=== PATIENT | male | born 1955 | race Caucasian/White ===

== ENCOUNTER 2017-05-07 11:05 | Inpatient (IN) | payer BC, OTHER ==
[~2017-05-07] VITALS: Ht 177.8 cm; Wt 95.2 kg
[~2017-05-07 11:05] MED LIST: MELO15TA3 PO
[2017-05-07] MEDS ORDERED: SODIUM CHLORIDE 0.9% 1000ML 2,000 ML IV STA (11:44)
[2017-05-07] MEDS ORDERED: ONDANSETRON INJ 2 MG/ML 2 ML VIAL IV STA (11:44)
[2017-05-07] MEDS ORDERED: FENTANYL CITRATE INJ 50 MCG/1 ML 2 ML VIAL IV ONE (11:45)
--- NOTE | 2017-05-07 11:56 | EMERGENCY ROOM VISIT NOTE ---
History Report prepared by Brandin: Peng Nguyen Under the Supervision of: Dr. Vivien Guillory M.D. First contact with patient: 11:36 Chief Complaint: DEHYDRATION Stated Complaint: DEHYDRATION, FLU, NO EATING/DRINKING X 24 HRS, V Nursing Triage Summary: PT REPORTS n/v , fever, headache since sunday has been using advil. History of Present Illness The patient is a 61 year old male who presents to the Emergency Room with complaints of a persistent headache and vomiting that began on Sunday at 1500 , 44 hours prior to arrival. He rates the headache pain as a 4/10 in severity. The patient states that he was cutting the grass Sunday afternoon when his symptoms onset. His also notes that he has felt feverish since this time as well. He has been taking Tylenol for his headache, but has not taken any in the past six hours. The patent is still currently experiencing the headache at this time. Source of History: patient, spouse/significant other Onset: 44 hours [employer] Position: head Symptom Intensity: 4/10 Quality: other (Headache) Associated Symptoms: + fevers, + vomiting Review of Systems See HPI for pertinent positives & negatives. A total of 10 systems reviewed and were otherwise negative. Past Medical & Surgical Medical Problems: (1) BPH (benign prostatic hyperplasia) (2) DVT (deep venous thrombosis) (3) DVT (deep venous thrombosis) (4) Factor V Leiden (5) Gout (6) Pulmonary embolism Surgical Problems: (1) History of knee replacement (2) History of tonsillectomy and adenoidectomy (3) S/P ACL repair (4) Status post total knee replacement, left (5) Status post total knee replacement, right Family History Diabetes mellitus Gallbladder disease Lung disease Social History Smoking Status: Never Smoker Drug Use: none Marital Status: Housing Status: lives with significant other Occupation Status: employed Current/Historical Medications Scheduled PRN Allopurinol (Zyloprim), 1 TAB PO DAILY PRN for gout Indomethacin (Indocin), 1 CAP PO TID PRN for Pain Allergies Coded Allergies: Sulfa Drugs (Verified Allergy, Mild, 10/29/09) Physical Exam Vital Signs Date Time Temp Pulse Resp B/P (MAP) Pulse Ox O2 Delivery O2 Flow Rate FiO2 05/07/17 14:28 81 17 146/85 97 05/07/17 12:57 72 20 155/82 96 Room Air 05/07/17 11:39 76 05/07/17 11:34 95 Room Air 05/07/17 11:31 78 18 150/84 96 Room Air 05/07/17 11:06 37.5 85 20 139/88 92 Room Air Pain Rating (0-10): 4.0 Physical Exam Vital signs reviewed. General: Well-appearing male, in no significant distress. HEENT: No scleral icterus, PERRLA, neck supple. Atraumatic. Cardiovascular: Regular rate and rhythm, no extra sounds. Pulmonary: Clear to auscultation bilaterally, normal work of breathing. Abdomen: Soft, nontender, nondistended, positive bowel sounds. Musculoskeletal: Atraumatic, no peripheral edema. Mild discomfort with forward flexion. Neurologic: Patient awake alert and oriented x 3, full strength in all 4 extremities. Cranial nerves 2 through 12 grossly intact. Skin: Warm, dry, no rash Medical Decision & Procedures ER Provider Diagnostic Interpretation: Radiology results as stated below per my review and radiologist interpretation: HEAD WITHOUT CONTRAST (CT) CT DOSE: 691.05 mGy.cm HISTORY: Headache mental status change TECHNIQUE: Multiaxial CT images of the head were performed without the use of intravenous contrast. A dose lowering technique was utilized adhering to the principles of ALARA. Comparison: None. Findings: The paranasal sinuses and mastoid air cells are clear. The calvarium and skull base are intact. The ventricles and sulci are within normal limits. There is no mass, hematoma, midline shift, or acute infarct. Impression: No acute intracranial abnormality. The above report was generated using voice recognition software. It may contain grammatical, syntax or spelling errors. Electronically signed by: Oz Knott M.D. 05/07/2017 12:11 PM Dictated Date/Time: 05/07/2017 12:10 PM Laboratory Results 05/07/17 11:20 Red Blood Count 5.16, Mean Corpuscular Volume 92.2, Mean Corpuscular Hemoglobin 31.6, Mean Corpuscular Hemoglobin Concent 34.2, Mean Platelet Volume 10.2, Neutrophils (%) (Auto) 82.0, Lymphocytes (%) (Auto) 10.7, Monocytes (%) (Auto) 6.6, Eosinophils (%) (Auto) 0.0, Basophils (%) (Auto) 0.2, Neutrophils # (Auto) 9.44, Lymphocytes # (Auto) 1.23, Monocytes # (Auto) 0.76, Eosinophils # (Auto) 0.00, Basophils # (Auto) 0.02 05/07/17 11:20 Test 05/07/17 11:20 05/07/17 11:34 05/07/17 11:40 05/07/17 13:45 White Blood Count 11.51 K/uL (4.8-10.8) Red Blood Count 5.16 M/uL (4.7-6.1) Hemoglobin 16.3 g/dL (14.0-18.0) Hematocrit 47.6 % (42-52) Mean Corpuscular Volume 92.2 fL (80-100) Mean Corpuscular Hemoglobin 31.6 pg (25-34) Mean Corpuscular Hemoglobin Concent 34.2 g/dl (32-36) Platelet Count 244 K/uL (130-400) Mean Platelet Volume 10.2 fL (7.4-10.4) Neutrophils (%) (Auto) 82.0 % Lymphocytes (%) (Auto) 10.7 % Monocytes (%) (Auto) 6.6 % Eosinophils (%) (Auto) 0.0 % Basophils (%) (Auto) 0.2 % Neutrophils # (Auto) 9.44 K/uL (1.4-6.5) Lymphocytes # (Auto) 1.23 K/uL (1.2-3.4) Monocytes # (Auto) 0.76 K/uL (0.11-0.59) Eosinophils # (Auto) 0.00 K/uL (0-0.5) Basophils # (Auto) 0.02 K/uL (0-0.2) RDW Standard Deviation 42.8 fL (36.4-46.3) RDW Coefficient of Variation 12.6 % (11.5-14.5) Immature Granulocyte % (Auto) 0.5 % Immature Granulocyte # (Auto) 0.06 K/uL (0.00-0.02) Anion Gap 6.0 mmol/L (3-11) Est Creatinine Clear Calc Drug Dose 80.2 ml/min Estimated GFR () 83.5 Estimated GFR (Non- 72.1 BUN/Creatinine Ratio 11.9 (10-20) Calcium Level 9.2 mg/dl (8.5-10.1) Magnesium Level 2.2 mg/dl (1.8-2.4) Total Bilirubin 0.8 mg/dl (0.2-1) Direct Bilirubin 0.2 mg/dl (0-0.2) Aspartate Amino Transf (AST/SGOT) 20 U/L (15-37) Alanine Aminotransferase (ALT/SGPT) 45 U/L (12-78) Alkaline Phosphatase 73 U/L (45-117) Total Protein 7.8 gm/dl (6.4-8.2) Albumin 3.9 gm/dl (3.4-5.0) Lyme Disease IgG Antibody NEG (NEG) Lyme Disease IgM Antibody NEG (NEG) Bedside Lactic Acid Venous 2.04 mmol/L (0.90-1.70) Urine Color YELLOW Urine Appearance TURBID (CLEAR) Urine pH 5.5 (4.5-7.5) Urine Specific [place] 1.027 (1.000-1.030) Urine Protein NEG (NEG) Urine Glucose (UA) NEG (NEG) Urine Ketones NEG (NEG) Urine Occult Blood NEG (NEG) Urine Nitrite NEG (NEG) Urine Bilirubin NEG (NEG) Urine Urobilinogen NEG (NEG) Urine Leukocyte Esterase NEG (NEG) Urine WBC (Auto) 0 /hpf (0-5) Urine RBC (Auto) 0-4 /hpf (0-4) Urine Hyaline Casts (Auto) 1-5 /lpf (0-5) Urine Epithelial Cells (Auto) 0-5 /lpf (0-5) Urine Bacteria (Auto) NEG (NEG) CSF Color COLORLESS CSF Appearance CLEAR CSF WBC 260 /uL (0-5) CSF RBC 4 /uL (0) CSF Polynuclear WBCs 5.0 % CSF Mononuclear WBCs 95.0 % CSF Xanthrochromic NO XANTHOCHROMIA CSF Cell Count Tube # 4 CSF Chemistry Tube # 2 CSF Glucose 48 mg/dl (40-70) CSF Total Protein 118.8 mg/dl (15.0-45.0) Laboratory results per my review. Medications Administered Medications (Trade) Dose Ordered Sig/Hero Route Start Time Stop Time Status Last Admin Dose Admin Sodium Chloride 2,000 ml @ 999 mls/hr Q2H1M STAT IV 05/07/17 11:44 05/07/17 13:44 DC 05/07/17 12:13 999 MLS/HR Ondansetron HCl (Zofran Inj) 4 mg NOW STAT IV 05/07/17 11:44 05/07/17 11:47 DC 05/07/17 12:12 4 MG Fentanyl Citrate (Fentanyl Inj) 50 mcg NOW ONCE IV 05/07/17 11:45 05/07/17 11:47 DC 05/07/17 12:13 50 MCG Lidocaine HCl (Xylocaine 1% Inj (Local)) 20 ml STK-MED ONCE .ROUTE 05/07/17 13:39 05/07/17 13:40 DC 05/07/17 13:39 20 ML Diphenhydramine HCl (Benadryl Inj) 25 mg NOW STAT IV 05/07/17 14:10 05/07/17 14:13 DC 05/07/17 14:25 25 MG Prochlorperazine Edisylate (Compazine Inj) 10 mg NOW STAT IV 05/07/17 14:10 05/07/17 14:13 DC 05/07/17 14:25 10 MG Ketorolac Tromethamine (Toradol Inj) 30 mg NOW STAT IV 05/07/17 14:10 05/07/17 14:13 DC 05/07/17 14:25 30 MG Sodium Chloride 1,000 ml @ 125 mls/hr Q8H STAT IV 05/07/17 14:10 05/07/17 22:09 05/07/17 14:27 125 MLS/HR Ceftriaxone Sodium (Rocephin Inj) 2 gm NOW STAT IV 05/07/17 14:49 05/07/17 14:54 DC 05/07/17 15:30 2 GM Dexamethasone Sodium Phosphate (Decadron Inj) 10 mg NOW ONCE IV 05/07/17 15:00 05/07/17 15:01 DC 05/07/17 15:30 10 MG Vancomycin HCl 2300 mg/Sodium Chloride 546 ml @ 200 mls/hr ONE STAT IV 05/07/17 14:49 05/07/17 17:32 05/07/17 15:30 200 MLS/HR ECG Indication: vomiting Rate (beats per minute): 74 Rhythm: normal sinus Findings: no acute ischemic change, no ectopy, other (T-wave flattening inferior) ED Course 1143: Past medical records reviewed. The patient was evaluated in room C4. A complete history and physical examination was performed. 2244: Ordered Zofran 4 mg IV, Sodium Chloride 2000 mL @ 999 mL/hr IV, Fentanyl 50 mcg IV. 1339: Ordered Lidocaine HCl 20 mL 1410: Ordered Sodium Chloride 1000 mL @ 125 mL/hr IV, Toradol 30 mg IV, Compazine 10 mg IV, Benadryl 25 mg IV. 1449: Ordered Vancomycin 546 mL @ 200 mL/hr IV, Rocephin 2 gm IV. 1453: I discussed the case with Lainey Conn PA-C at this time. She will evaluate the patient for further treatment. 1500: Ordered Decadron 10 mg IV. Medical Decision Differential diagnosis: Etiologies such as migraine headache, meningitis, sinusitis, CO exposure, ICH, SAH, infection, tumor, headache, sinus thrombosis, arterial dissection, as well as others were entertained. This patient was evaluated and appeared to be in no significant distress. IV access was obtained and laboratory work was obtained. Patient was placed on the air sampling and monitoring. He was hydrated with normal saline solution, given IV fentanyl and Zofran for his discomfort. CT scan of the head was obtained and is negative for acute intracranial abnormality. Patient's laboratory work is fairly unrevealing with a mildly elevated WBC. Patient was given IV Compazine, IV Benadryl, IV Toradol for continued headache. A lumbar puncture was performed and results are concerning for a WBC greater than 200. Protein is also elevated at 118. Glucose in the CSF is normal. These will be sent for culture. The patient was given IV dexamethasone, IV vancomycin and IV ceftriaxone. Pharmacy consult was placed and they also recommended IV ampicillin due to the patient's risk of listeria. This was dosed by pharmacy. The patient was discussed with the hospitalist service will evaluate the patient for admission and further management. Patient are aware of the plan and agree. Medication Reconcilliation Current Medication List: was personally reviewed by or Blood Pressure Screening Patient's blood pressure: Elevated blood pressure Blood pressure disposition: Elevated BP felt to be situational Consults Time Called: 1449 Consulting Physician: Lainey Conn PA-C Returned Call: [phone] I discussed the case with Lainey Conn PA-C at this time. She will evaluate the patient for further treatment. Impression Primary Impression: Meningitis Critical Care I have personally spent greater than 30 minutes of critical care time in the direct management of this patient. This includes bedside care, interpretation of diagnostic studies, and testing, discussion with consultants, patient, and family members, and other required patient management activities. This 30 minutes is in excess of all separately billable procedures. Scribe Attestation The scribe's documentation has been prepared under my direction and personally reviewed by me in its entirety. I confirm that the note above accurately reflects all work, treatment, procedures, and medical decision making performed by me. Departure Information Dispostion Being Evaluated By Hospitalist Oz Sampson M.D. (PCP) Patient Instructions [facility]
--- NOTE | 2017-05-07 12:13 | DIAGNOSTIC IMAGING REPORT ---
HEAD WITHOUT CONTRAST (CT) CT DOSE: 691.05 mGy.cm HISTORY: Headache mental status change TECHNIQUE: Multiaxial CT images of the head were performed without the use of intravenous contrast. A dose lowering technique was utilized adhering to the principles of ALARA. Comparison: None. Findings: The paranasal sinuses and mastoid air cells are clear. The calvarium and skull base are intact. The ventricles and sulci are within normal limits. There is no mass, hematoma, midline shift, or acute infarct. Impression: No acute intracranial abnormality. The above report was generated using voice recognition software. It may contain grammatical, syntax or spelling errors. Electronically signed by: Oz Knott M.D. 05/07/2017 12:11 PM Dictated Date/Time: 05/07/2017 12:10 PM
[2017-05-07 12:16] LABS: URINE APPEARANCE TURBID (CLEAR); URINE BILIRUBIN NEG (NEG); URINE COLOR YELLOW; URINE EPITHELIAL CELL AUTO 0-5 /lpf (0-5); URINE NITRITE NEG (NEG); URINE PH 5.5 (4.5-7.5); URINE SPECIFIC GRAVITY 1.027 (1.000-1.030); UROBILINOGEN NEG (NEG); ZZUR CULT IF INDIC CLEAN CATCH NO
[2017-05-07 12:19] LABS: MANUAL MICROSCOPIC REQUIRED? NO; REVIEW REQ? NO
[2017-05-07 12:25] LABS: BASO % 0.2 %; BASO ABS # 0.02 K/uL (0-0.2); COMPLETE YES; HEMATOCRIT 47.6 % (42-52); IG% 0.5 %; LYMPH % 10.7 %; LYMPH ABS # 1.23 K/uL (1.2-3.4); MEAN CELL VOLUME 92.2 fL (80-100); MEAN CORPUSCULAR HEMOGLOBIN 31.6 pg (25-34); MEAN CORPUSCULAR HGB CONC 34.2 g/dl (32-36); MEAN PLATELET VOLUME 10.2 fL (7.4-10.4); MONO % 6.6 %; PLATELET COUNT 244 K/uL (130-400); RED BLOOD COUNT 5.16 M/uL (4.7-6.1); WHITE BLOOD COUNT 11.51 K/uL (4.8-10.8)
[2017-05-07 12:33] LABS: BUN/CREATININE RATIO 11.9 (10-20); CALCIUM 9.2 mg/dl (8.5-10.1); CREATININE 1.1 mg/dl (0.60-1.40); MAGNESIUM 2.2 mg/dl (1.8-2.4); POTASSIUM 4.2 mmol/L (3.5-5.1)
[2017-05-07] MEDS ORDERED: INDO-22 PO (13:03)
[2017-05-07] MEDS ORDERED: LIDOCAINE HCL 1% 20 ML VIAL ONE (13:39)
[2017-05-07] MEDS ORDERED: SODIUM CHLORIDE 0.9% 1000ML 1,000 ML IV STA (14:10)
[2017-05-07] MEDS ORDERED: PROCHLORPERAZINE 5 MG/ML 2 ML VIAL IV STA (14:10)
[2017-05-07] MEDS ORDERED: KETOROLAC TROMETHAMINE 30 MG/ML VIAL IV STA (14:10)
[2017-05-07] MEDS ORDERED: DiphenhydrAMINE HCL 50 MG/ML VIAL IV STA (14:10)
[2017-05-07 14:19] LABS: CSF TOTAL PROTEIN 118.8 mg/dl (15.0-45.0)
[2017-05-07 14:25] LABS: CSF CHEMISTRY TUBE # 2
[2017-05-07 14:30] LABS: CSF APPEARANCE CLEAR; CSF COLOR COLORLESS; CSF XANTHOCHROMIC NO XANTHOCHROMIA
[2017-05-07] MEDS ORDERED: VANCOMYCIN INJ 2,300 MG in SODIUM CHLORIDE 0.9% 500ML 500 ML IV STA (14:49)
[2017-05-07] MEDS ORDERED: CEFTRIAXONE SOD INJ 1 GM ADDVIAL IV STA (14:49)
[2017-05-07] MEDS ORDERED: DEXAMETHASONE SOD INJ 10 MG/ML VIAL IV ONE (15:00)
[2017-05-07] MEDS ORDERED: AMPICILLIN IV 2,000 MG in SODIUM CHLOR 0.9% AD-VAN 100ML 100 ML IV STA (15:06)
[2017-05-07 15:09] LABS: LYME DISEASE AB IGG NEG (NEG); LYME DISEASE AB IGM NEG (NEG)
[2017-05-07] MEDS ORDERED: ALLO100T PO (15:24)
[2017-05-07] MEDS ORDERED: VANCOMYCIN CONSULT ACTIVE PRN (15:28)
[2017-05-07] MEDS ORDERED: ONDANSETRON INJ 2 MG/ML 2 ML VIAL IV PRN (15:30)
[2017-05-07] MEDS: SODIUM CHLORIDE 0.9% 1000ML 1,000 ML IV SCH (15:48)
[2017-05-07] MEDS ORDERED: ACYCLOVIR CONSULT ACTIVE PRN (15:51)
[2017-05-07] MEDS ORDERED: AMPICILLIN CONSULT PHARMACY PRN (15:51)
--- NOTE | 2017-05-07 16:10 | Pharmacy Progress Note ---
Pharmacy Abx Initial Consult Date of Service May 07, 2017. Pharmacy Dosing Scope Date of Consult: 05/07/17 Consultation requested by: Lainey Conn Pharmacy is consulted to initiate vancomycin/ampicillin/acyclovir IV dosing therapy, order appropriate labs and adjust drug dose/frequency. Subjective The patient is a 61 year old male admitted on 05/07/2017. Objective Height (Feet): 5 Height (Inches): 10 Weight (Kilograms): 91.60 Vital Signs (Past 12Hrs) Vital Signs Past 12 Hours Date Time Temp Pulse Resp B/P (MAP) Pulse Ox O2 Delivery O2 Flow Rate FiO2 05/07/17 14:28 81 17 146/85 97 05/07/17 12:57 72 20 155/82 96 Room Air 05/07/17 11:39 76 05/07/17 11:34 95 Room Air 05/07/17 11:31 78 18 150/84 96 Room Air 05/07/17 11:06 37.5 85 20 139/88 92 Room Air Lab Results (24Hrs) Laboratory Tests (24 Hours) Test 05/07/17 11:20 05/07/17 16:00 White Blood Count 11.51 K/uL (4.8-10.8) H Red Blood Count 5.16 M/uL (4.7-6.1) Hemoglobin 16.3 g/dL (14.0-18.0) Hematocrit 47.6 % (42-52) Mean Corpuscular Volume 92.2 fL (80-100) Mean Corpuscular Hemoglobin 31.6 pg (25-34) Mean Corpuscular Hemoglobin Concent 34.2 g/dl (32-36) Platelet Count 244 K/uL (130-400) Mean Platelet Volume 10.2 fL (7.4-10.4) Neutrophils (%) (Auto) 82.0 % Lymphocytes (%) (Auto) 10.7 % Monocytes (%) (Auto) 6.6 % Eosinophils (%) (Auto) 0.0 % Basophils (%) (Auto) 0.2 % Neutrophils # (Auto) 9.44 K/uL (1.4-6.5) H Lymphocytes # (Auto) 1.23 K/uL (1.2-3.4) Monocytes # (Auto) 0.76 K/uL (0.11-0.59) H Eosinophils # (Auto) 0.00 K/uL (0-0.5) Basophils # (Auto) 0.02 K/uL (0-0.2) Micro Results Date/Time Source Procedure Growth Status 05/07/17 12:20 Blood Blood Culture Pending Received 05/07/17 11:20 Blood Blood Culture Pending Received 05/07/17 13:45 Cerebral Spinal Fluid Gram Stain - Final Resulted 05/07/17 13:45 Cerebral Spinal Fluid CSF Culture Pending Resulted Risk Factors for Resistance currently none available Assessment & Plan Assessment 61 year old male admitted with a 48 hour history of vomiting and headache. He feels feverish. He has a slightly elevated WBC. A CSF sample provides an elevated WBC (260 / uL) and protein (118.8 mg/dL) with normal glucose (48 mg/dL) ) Plan vancomycin/ampicillin/acyclovir for treatment of empiric meningitis Vancomycin IV * Loading dose: 2300 mg (25 mg/kg) * Maintenance dose: 1500 mg IV (16 mg/kg) every 10 hours * Goal trough level for meningitis : 15 to 20 mcg/mL * Trough ordered for 05/08/17 prior to 2200 dose Ampicillin * recommended dose for empiric meningitis is 12 gm per day divided q3-4 hours Acyclovir * recommended dose is 10 mg/kg/dose every 8 hours (utilize IBW when actual body weight >120% IBW, patient is currently 125% IBW) * IBW = 73 kg so 750 mg IV q8 hours ordered Pharmacy will continue to follow and will adjust dose/frequency as necessary. Thank you.
--- NOTE | 2017-05-07 16:21 | History and Physical ---
History & Physical Date & Time of Service: May 07, 2017 ~ 15:00 Chief Complaint: Nausea, Vomiting, Headache Primary Care Physician: Oz Hernadez M.D. History of Present Illness 61 year old male who presents to the ER with nausea, vomiting, and headache. Patient reports his symptoms began 3 days ago. He reports several episodes of vomiting over the past 3 days. He denies hematemesis or coffee ground emesis. No abdominal pain or diarrhea. He reports a severe frontal / temporal headache. He reports mild neck pain and stiffness. He reports minimal movement of his head would worsen the headache. He denies photosensitivity. No blurry or double vision. He feels as though he has been running fevers but did not take his temperature. He denies recent travel or other sick contacts. He denies lightheadedness, dizziness, diaphoresis, or syncopal events. No chest pain or shortness of breath. He denies any urinary symptoms. In the ER, patient is hemodynamically stable. Spinal tap was preformed that showed WBC 260, glucose 48 , and total protein 118. Patient was treated with IVF, IV Zofran, IV Compazine, IV Benadryl, IV Toradol, IV Vanco, IV Rocephin, IV Ampicillin, and IV Decadron. Past Medical/Surgical History Medical Problems: (1) BPH (benign prostatic hyperplasia) Status: Chronic (2) DVT (deep venous thrombosis) Status: Resolved (3) DVT (deep venous thrombosis) Status: Chronic (4) Factor V Leiden Status: Chronic (5) Gout Status: Chronic (6) Pulmonary embolism Status: Chronic Surgical Problems: (1) History of knee replacement Status: Resolved (2) History of tonsillectomy and adenoidectomy Status: Chronic (3) S/P ACL repair Status: Chronic (4) Status post total knee replacement, left Status: Chronic (5) Status post total knee replacement, right Status: Chronic Family History Hypertension BROTHER Social History Smoking Status: Never Smoker Alcohol Use: none Immunizations History of Influenza Vaccine: Yes Influenza Vaccine Date: Nov 01, 2016 History of Tetanus Vaccine?: Yes Tetanus Immunization Date: Mar 10, 2010 Multi-Drug Resistant Organisms History of MDRO: No Allergies Coded Allergies: Sulfa Antibiotics (Verified Allergy, Unknown, ., 05/07/17) Home Medications Scheduled PRN Allopurinol (Zyloprim), 1 TAB PO DAILY PRN for gout Indomethacin (Indocin), 1 CAP PO TID PRN for Pain Review of Systems Constitutional- no fever; no weight loss Eyes- no acute visual changes ENT- no sinus drainage; no pharyngitis Pulmonary- no cough, no wheezing, no shortness of breath Cardiac- no chest pain, no palpitations, no orthopnea, no dependent edema GI- (+) as noted above - no dysuria, no hematuria Musculoskeletal- no arthralgias, no myalgias Derm- no rashes, no new skin lesions, no changing skin lesions Hematologic- no unusual bruising, no unusual bleeding Lymphatics- no adenopathy Endocrine- no polyuria or polydipsia; no heat or cold intolerance Neuro- (+) as noted above Psych- no anxiety, no depression Physical Exam Vital Signs Date Time Temp Pulse Resp B/P (MAP) Pulse Ox O2 Delivery O2 Flow Rate FiO2 05/07/17 14:28 81 17 146/85 97 05/07/17 12:57 72 20 155/82 96 Room Air 05/07/17 11:39 76 05/07/17 11:34 95 Room Air 05/07/17 11:31 78 18 150/84 96 Room Air 05/07/17 11:06 37.5 85 20 139/88 92 Room Air General Appearance: no apparent distress Head: normocephalic Eyes: normal inspection, PERRL, EOMI ENT: hearing grossly normal Neck: supple, no JVD Respiratory/Chest: lungs clear, normal breath sounds, no respiratory distress Cardiovascular: regular rate, rhythm, no edema, normal peripheral pulses Abdomen/GI: normal bowel sounds, non tender, soft Extremities/Musculoskelatal: normal inspection, no calf tenderness Neurologic/Psych: no motor/sensory deficits, alert, normal mood/affect, oriented x 3 Skin: normal color, warm/dry Diagnostics Laboratory Results Results Past 24 Hours Test 05/07/17 00:00 05/07/17 11:20 05/07/17 11:34 05/07/17 11:40 Range/Units White Blood Count 11.51 4.8-10.8 K/uL Red Blood Count 5.16 4.7-6.1 M/uL Hemoglobin 16.3 14.0-18.0 g/dL Hematocrit 47.6 42-52 % Mean Corpuscular Volume 92.2 80-100 fL Mean Corpuscular Hemoglobin 31.6 25-34 pg Mean Corpuscular Hemoglobin Concent 34.2 32-36 g/dl Platelet Count 244 130-400 K/uL Mean Platelet Volume 10.2 7.4-10.4 fL Neutrophils (%) (Auto) 82.0 % Lymphocytes (%) (Auto) 10.7 % Monocytes (%) (Auto) 6.6 % Eosinophils (%) (Auto) 0.0 % Basophils (%) (Auto) 0.2 % Neutrophils # (Auto) 9.44 1.4-6.5 K/uL Lymphocytes # (Auto) 1.23 1.2-3.4 K/uL Monocytes # (Auto) 0.76 0.11-0.59 K/uL Eosinophils # (Auto) 0.00 0-0.5 K/uL Basophils # (Auto) 0.02 0-0.2 K/uL RDW Standard Deviation 42.8 36.4-46.3 fL RDW Coefficient of Variation 12.6 11.5-14.5 % Immature Granulocyte % (Auto) 0.5 % Immature Granulocyte # (Auto) 0.06 0.00-0.02 K/uL Sodium Level 136 136-145 mmol/L Potassium Level 4.2 3.5-5.1 mmol/L Chloride Level 103 98-107 mmol/L Carbon Dioxide Level 27 21-32 mmol/L Anion Gap 6.0 3-11 mmol/L Blood Urea Nitrogen 13 7-18 mg/dl Creatinine 1.10 0.60-1.40 mg/dl Est Creatinine Clear Calc Drug Dose 80.2 ml/min Estimated GFR () 83.5 Estimated GFR (Non- 72.1 BUN/Creatinine Ratio 11.9 10-20 Random Glucose 119 70-99 mg/dl Calcium Level 9.2 8.5-10.1 mg/dl Magnesium Level 2.2 1.8-2.4 mg/dl Total Bilirubin 0.8 0.2-1 mg/dl Direct Bilirubin 0.2 0-0.2 mg/dl Aspartate Amino Transf (AST/SGOT) 20 15-37 U/L Alanine Aminotransferase (ALT/SGPT) 45 12-78 U/L Alkaline Phosphatase 73 45-117 U/L Total Protein 7.8 6.4-8.2 gm/dl Albumin 3.9 3.4-5.0 gm/dl Lyme Disease IgG Antibody NEG NEG Lyme Disease IgM Antibody NEG NEG Bedside Lactic Acid Venous 2.04 0.90-1.70 mmol/L Urine Color YELLOW Urine Appearance TURBID CLEAR Urine pH 5.5 4.5-7.5 Urine Specific [place] 1.027 1.000-1.030 Urine Protein NEG NEG Urine Glucose (UA) NEG NEG Urine Ketones NEG NEG Urine Occult Blood NEG NEG Urine Nitrite NEG NEG Urine Bilirubin NEG NEG Urine Urobilinogen NEG NEG Urine Leukocyte Esterase NEG NEG Urine WBC (Auto) 0 0-5 /hpf Urine RBC (Auto) 0-4 0-4 /hpf Urine Hyaline Casts (Auto) 1-5 0-5 /lpf Urine Epithelial Cells (Auto) 0-5 0-5 /lpf Urine Bacteria (Auto) NEG NEG Test 05/07/17 13:45 05/07/17 15:53 05/07/17 16:00 Range/Units CSF Color COLORLESS CSF Appearance CLEAR CSF WBC 260 0-5 /uL CSF RBC 4 0 /uL CSF Polynuclear WBCs 5.0 % CSF Mononuclear WBCs 95.0 % CSF Xanthrochromic NO XANTHOCHROMIA CSF Cell Count Tube # 4 CSF Chemistry Tube # 2 CSF Glucose 48 40-70 mg/dl CSF Total Protein 118.8 15.0-45.0 mg/dl Microbiology Results 05/07/17 Blood Culture, Received Pending 05/07/17 Blood Culture, Received Pending 05/07/17 Gram Stain - Final, Resulted 05/07/17 CSF Culture, Resulted Pending Diagnostic Radiology Head CT Impression: No acute intracranial abnormality. Impression Assessment and Plan MENINGITIS - admit to tele - patient presenting with nausea, vomiting, and headache x 3 days; spinal tap in the ED suggestive of viral meningitis - patient currently hemodynamically stable; feeling much improved after treatment given in the ED - no signs of sepsis, head CT negative - serum Lyme negative - will continue with empiric anabiotics until cultures resulted - Vanco, Ceftriaxone, and Ampicillin - empiric IV Acyclovir - ID and neuro consults HX FACTOR V LEIDEN DVT PROPHYLAXIS - SQ Lovenox DISPO - In my clinical judgment this beneficiary meets acute admission criteria, established by [facility], that includes being hospitalized through two midnights. ATTENDING ADDENDUM care coordinated with MICHELLE Conn please refer to her notes for full details, I agree with her notes patient seen and examined, records reviewed by myself as well on exam, patient seen resting in bed, comfortable states he feels improved compared to when he initially came in denies headache, neck pain, chills, confusion no other symptoms VS noted and reviewed oriented x 3, not in distress, speaks in sentences with no effort nor accessory muscle use normal rate, regular rhythm, no murmurs clear breath sounds bilaterally non distended, soft, nontender no bipedal edema, erythema, warmth no neuro deficits, neck supple WBC 11.5 Spinal Fluid CSF: 260 ASSESSMENT/PLAN> MENINGITIS, LIKELY VIRAL - ff up CSF cultures - on empiric Vanc/Ceftri/Ampicillin + Acyclovir - ID and Neuro consulted other diagnoses and plan of care as per EZEQUIEL Conn's notes Kain Garcias MD VTE Prophylaxis VTE Risk Assessment Done? Y/N: Yes Risk Level: Moderate
[2017-05-07 16:40] VITALS: BP 129/65; PULSE 84; TEMP 37.2; O2SAT 97; Ht 177.8 cm; Wt 95.2 kg
[2017-05-07] MEDS: ACYCLOVIR SOD INJ 750 MG in DEXTROSE 5% 250ML 250 ML IV SCH (17:00)
[2017-05-07 19:28] VITALS: BP 124/67; PULSE 77; TEMP 37; O2SAT 90
[2017-05-07] MEDS: SODIUM CHLORIDE 0.9% IV SCH (20:20)
[2017-05-07] MEDS: AMPICILLIN IV SCH (20:20)
[2017-05-07] MEDS: ENOXAPARIN 40 MG/0.4 ML SYR SC SCH (20:21)
--- NOTE | 2017-05-07 20:21 | NEUROLOGY CONSULTATION ---
DATE OF CONSULTATION: 05/07/2017 REASON FOR CONSULTATION: Meningitis. HISTORY OF PRESENT ILLNESS: The patient is a 61-year-old right-handed male with a history of gout, BPH, DVT at the time of bilateral knee surgery, factor V Leiden mutation status who was in his usual state of health. He had been mowing the lawn with a push mower, came into the house developed vaguely lightheaded had the gradual onset of a modestly severe headache. The headache worsened and he developed nausea, vomiting, light sensitivity and some mild neck stiffness. He had fevers, chills, sweats, myalgias but no diarrhea. He had no recent head or neck injury. No one has been ill at home. He has not had any rashes, tick bites, cold sores. There has been no foreign travel. CT of the head, which I have reviewed is unremarkable. The visualized sinuses appear unremarkable. Spinal tap was performed showing white cells of 260, glucose 48, total protein 118. The patient was treated with IV fluids, Zofran, Compazine, Benadryl, Toradol, vancomycin, Rocephin, ampicillin, Decadron and acyclovir. The patient is improving. PAST MEDICAL HISTORY: As above. He has no history of intracranial surgery. SURGICAL HISTORY: Knee replacement, tonsillectomy, ACL repair. SOCIAL HISTORY: Nonsmoker, nondrinker. The patient is a staff radiologist. FAMILY HISTORY: Brother - hypertension. ALLERGIES: SULFA. MEDICATIONS: Zyloprim and Indocin. PHYSICAL EXAMINATION: VITAL SIGNS: 37.5, 85, 20, 139/88, 92%. GENERAL: The patient is awake, alert, oriented, normal speech and language. He is mildly flushed. HEAD: Normocephalic, atraumatic. NECK: There is mild neck stiffness. SKIN: No rashes are noted. ABDOMEN: Soft, nontender. HEART: No carotid bruits. Heart - regular rate and rhythm. LUNGS: Clear. NEUROLOGIC: Pupils are equal. I could not reliably visualize the optic nerves. There are normal leung, motility, facial sensation and symmetry. Speech and language are normal. Motor 5/5. No drift. Normal rapid alternating movements. Symmetric reflexes. Downgoing toes. Clmpja-tj-uzlh and ifwh-uc-elpa normal. Intact light touch bilaterally. IMPRESSION: Presumed viral meningitis. PLAN: Defer to infectious disease regarding empiric antibiotic coverage. I see no evidence of increased intracranial pressure, cranial neuropathies or any worrisome signs or symptoms. Will follow with you. CHRISTINE
[2017-05-08] VITALS (9 sets, daily range): BP systolic 113–143; BP diastolic 61–74; PULSE 65–86; TEMP 36.5–38.7; O2SAT 92–97
[2017-05-08] MEDS: SODIUM CHLORIDE 0.9% IV SCH ×3 (00:38→07:36)
[2017-05-08] MEDS: AMPICILLIN IV SCH ×3 (00:38→07:36)
[2017-05-08] MEDS: VANCOMYCIN INJ 1,500 MG in SODIUM CHLORIDE 0.9% 500ML 500 ML IV SCH ×2 (00:40→12:15)
[2017-05-08] MEDS: ACYCLOVIR SOD INJ 750 MG in DEXTROSE 5% 250ML 250 ML IV SCH ×3 (00:40→16:51)
[2017-05-08] MEDS: CEFTRIAXONE SOD INJ 2,000 MG in DEXTROSE 5% 50ML 50 ML IV SCH ×2 (02:22→15:01)
[2017-05-08 05:55] LABS: HEMATOCRIT 40.7 % (42-52); MEAN CELL VOLUME 91.7 fL (80-100); MEAN CORPUSCULAR HEMOGLOBIN 32.2 pg (25-34); MEAN CORPUSCULAR HGB CONC 35.1 g/dl (32-36); PLATELET COUNT 194 K/uL (130-400); RED BLOOD COUNT 4.44 M/uL (4.7-6.1)
[2017-05-08 06:26] LABS: BUN/CREATININE RATIO 16.1 (10-20); CALCIUM 8.4 mg/dl (8.5-10.1); CREATININE 0.92 mg/dl (0.60-1.40); POTASSIUM 3.8 mmol/L (3.5-5.1)
[2017-05-08] MEDS: SODIUM CHLORIDE 0.9% 1000ML 1,000 ML IV SCH (07:36)
--- NOTE | 2017-05-08 10:15 | Medical Consult ---
Consultation Date of Consultation: May 08, 2017. Attending Physician: Conrado Melendez MD Reason for Consultation: Meningitis History of Present Illness 61-year-old male with history of DVT, factor V Leiden deficiency, BPH, otherwise in good health, was well until last week when he noted onset of progressively worsening headache, fever, chills, myalgias and arthralgias, and nausea with vomiting. Headache worsened to the point where patient came to the emergency department. He underwent lumbar puncture with finding of pleocytosis , mostly mononuclear cells, with elevated protein. Gram stain negative. patient was started empirically on IV ceftriaxone, vancomycin, ampicillin, and acyclovir. This morning he is feeling significantly better with only mild headache, no significant photophobia or neck stiffness. Cultures are no growth to date. Patient denies any rash, joint swelling, cardiac, pulmonary, or urinary complaints. Patient has frequent outdoor activities, no other significant travel or exposure history. He has had CT scan of the head which was unremarkable, Lyme serology is negative. Past Medical/Surgical History Medical Problems: (1) BPH (benign prostatic hyperplasia) (2) DVT (deep venous thrombosis) (3) DVT (deep venous thrombosis) (4) Factor V Leiden (5) Gout (6) Pulmonary embolism Surgical Problems: (1) History of knee replacement (2) History of tonsillectomy and adenoidectomy (3) S/P ACL repair (4) Status post total knee replacement, left (5) Status post total knee replacement, right Family History Hypertension BROTHER Social History Smoking Status: Never Smoker Alcohol Use: none Housing Status: lives with significant other Allergies Coded Allergies: Sulfa Antibiotics (Verified Allergy, Unknown, ., 05/07/17) Current Inpatient Medications Current Inpatient Medications Medications (Trade) Dose Ordered Sig/Hero Route Start Time Stop Time Status Last Admin Dose Admin Enoxaparin Sodium (Lovenox Inj) 40 mg Q24H SC 05/07/17 21:00 06/06/17 20:59 Acetaminophen (Tylenol Tab) 650 mg Q4H PRN PO 05/07/17 15:30 06/06/17 15:29 Ondansetron HCl (Zofran Inj) 4 mg Q6H PRN IV 05/07/17 15:30 06/06/17 15:29 Vancomycin HCl (Consult) 1 ea UD PRN N/A 05/07/17 15:28 06/06/17 15:27 Sodium Chloride 1,000 ml @ 125 mls/hr Q8H IV 05/07/17 15:30 06/06/17 15:29 05/08/17 07:36 125 MLS/HR Ceftriaxone Sodium 2000 mg/ Dextrose 70 ml @ 100 mls/hr Q12H IV 05/08/17 03:00 05/18/17 02:59 05/08/17 02:22 100 MLS/HR Miscellaneous Information (Pharmacy Consult) 1 ea UD PRN N/A 05/07/17 15:51 06/06/17 15:50 Acyclovir Sodium (Consult) 1 ea UD PRN N/A 05/07/17 15:51 06/06/17 15:50 Vancomycin HCl 1500 mg/Sodium Chloride 530 ml @ 200 mls/hr Q10H IV 05/08/17 02:00 05/18/17 01:59 05/08/17 00:40 200 MLS/HR Acyclovir Sodium 750 mg/Dextrose 265 ml @ 265 mls/hr Q8H IV 05/07/17 17:00 05/17/17 16:59 05/08/17 09:00 265 MLS/HR Ampicillin Sodium 2000 mg/Sodium Chloride 108 ml @ 216 mls/hr Q4H IV 05/08/17 12:00 05/17/17 19:59 Review of Systems All systems were reviewed and are negative except as per HPI Physical Exam Date Time Temp Pulse Resp B/P (MAP) Pulse Ox O2 Delivery O2 Flow Rate FiO2 05/08/17 07:45 36.8 68 20 136/74 (94) 97 05/08/17 07:30 Room Air 05/08/17 04:09 Room Air 05/08/17 04:00 37.0 69 18 122/68 (86) 96 Room Air 05/08/17 00:15 Room Air 05/08/17 00:04 36.8 65 18 125/61 (82) 94 Room Air 05/07/17 20:30 Room Air 05/07/17 19:28 37.0 77 18 124/67 (86) 90 Room Air 05/07/17 16:40 37.2 84 17 129/65 97 Room Air 05/07/17 16:23 37.6 05/07/17 16:00 37.5 81 17 146/85 97 05/07/17 14:28 81 17 146/85 97 05/07/17 12:57 72 20 155/82 96 Room Air 05/07/17 11:39 76 05/07/17 11:34 95 Room Air 05/07/17 11:31 78 18 150/84 96 Room Air 05/07/17 11:06 37.5 85 20 139/88 92 Room Air General Appearance: WD/WN, no apparent distress Head: normocephalic, atraumatic Eyes: normal inspection, EOMI, sclerae normal ENT: normal ENT inspection, hearing grossly normal, pharynx normal Neck: supple, no adenopathy, thyroid normal, trachea midline Respiratory/Chest: chest non-tender, lungs clear, normal breath sounds, no respiratory distress Cardiovascular: regular rate, rhythm, no gallop, no murmur Abdomen/GI: normal bowel sounds, non tender, soft, no organomegaly Back: normal inspection, no CVA tenderness Extremities/Musculoskelatal: normal inspection, no calf tenderness, normal capillary refill Neurologic/Psych: no motor/sensory deficits, alert, normal mood/affect, oriented x 3 Skin: normal color, warm/dry, no rash Lymphatic: no adenopathy Laboratory Results Date/Time Source Procedure Growth Status 05/07/17 12:20 Blood Blood Culture Pending Received 05/07/17 11:20 Blood Blood Culture Pending Received 05/07/17 13:45 Cerebral Spinal Fluid Gram Stain - Final Resulted 05/07/17 13:45 Cerebral Spinal Fluid CSF Culture Pending Resulted Last 24 Hours Test 05/07/17 11:20 05/07/17 11:34 05/07/17 11:40 05/07/17 13:45 White Blood Count 11.51 K/uL Red Blood Count 5.16 M/uL Hemoglobin 16.3 g/dL Hematocrit 47.6 % Mean Corpuscular Volume 92.2 fL Mean Corpuscular Hemoglobin 31.6 pg Mean Corpuscular Hemoglobin Concent 34.2 g/dl Platelet Count 244 K/uL Mean Platelet Volume 10.2 fL Neutrophils (%) (Auto) 82.0 % Lymphocytes (%) (Auto) 10.7 % Monocytes (%) (Auto) 6.6 % Eosinophils (%) (Auto) 0.0 % Basophils (%) (Auto) 0.2 % Neutrophils # (Auto) 9.44 K/uL Lymphocytes # (Auto) 1.23 K/uL Monocytes # (Auto) 0.76 K/uL Eosinophils # (Auto) 0.00 K/uL Basophils # (Auto) 0.02 K/uL RDW Standard Deviation 42.8 fL RDW Coefficient of Variation 12.6 % Immature Granulocyte % (Auto) 0.5 % Immature Granulocyte # (Auto) 0.06 K/uL Sodium Level 136 mmol/L Potassium Level 4.2 mmol/L Chloride Level 103 mmol/L Carbon Dioxide Level 27 mmol/L Anion Gap 6.0 mmol/L Blood Urea Nitrogen 13 mg/dl Creatinine 1.10 mg/dl Est Creatinine Clear Calc Drug Dose 80.2 ml/min Estimated GFR () 83.5 Estimated GFR (Non- 72.1 BUN/Creatinine Ratio 11.9 Random Glucose 119 mg/dl Calcium Level 9.2 mg/dl Magnesium Level 2.2 mg/dl Total Bilirubin 0.8 mg/dl Direct Bilirubin 0.2 mg/dl Aspartate Amino Transf (AST/SGOT) 20 U/L Alanine Aminotransferase (ALT/SGPT) 45 U/L Alkaline Phosphatase 73 U/L Total Protein 7.8 gm/dl Albumin 3.9 gm/dl Lyme Disease IgG Antibody NEG Lyme Disease IgM Antibody NEG Bedside Lactic Acid Venous 2.04 mmol/L Urine Color YELLOW Urine Appearance TURBID Urine pH 5.5 Urine Specific [place] 1.027 Urine Protein NEG Urine Glucose (UA) NEG Urine Ketones NEG Urine Occult Blood NEG Urine Nitrite NEG Urine Bilirubin NEG Urine Urobilinogen NEG Urine Leukocyte Esterase NEG Urine WBC (Auto) 0 /hpf Urine RBC (Auto) 0-4 /hpf Urine Hyaline Casts (Auto) 1-5 /lpf Urine Epithelial Cells (Auto) 0-5 /lpf Urine Bacteria (Auto) NEG CSF Color COLORLESS CSF Appearance CLEAR CSF WBC 260 /uL CSF RBC 4 /uL CSF Polynuclear WBCs 5.0 % CSF Mononuclear WBCs 95.0 % CSF Xanthrochromic NO XANTHOCHROMIA CSF Cell Count Tube # 4 CSF Chemistry Tube # 2 CSF Glucose 48 mg/dl CSF Total Protein 118.8 mg/dl Test 05/07/17 17:04 05/08/17 05:28 Prothrombin Time 11.0 SECONDS Prothromb Time International Ratio 1.0 Lactic Acid Level 1.3 mmol/L White Blood Count 13.00 K/uL Red Blood Count 4.44 M/uL Hemoglobin 14.3 g/dL Hematocrit 40.7 % Mean Corpuscular Volume 91.7 fL Mean Corpuscular Hemoglobin 32.2 pg Mean Corpuscular Hemoglobin Concent 35.1 g/dl RDW Standard Deviation 42.0 fL RDW Coefficient of Variation 12.4 % Platelet Count 194 K/uL Mean Platelet Volume 10.0 fL Sodium Level 140 mmol/L Potassium Level 3.8 mmol/L Chloride Level 109 mmol/L Carbon Dioxide Level 25 mmol/L Anion Gap 6.0 mmol/L Blood Urea Nitrogen 15 mg/dl Creatinine 0.92 mg/dl Est Creatinine Clear Calc Drug Dose 96.9 ml/min Estimated GFR () 103.7 Estimated GFR (Non- 89.5 BUN/Creatinine Ratio 16.1 Random Glucose 109 mg/dl Calcium Level 8.4 mg/dl Hepatitis C Antibody Screen NEG HEAD WITHOUT CONTRAST (CT) CT DOSE: 691.05 mGy.cm HISTORY: Headache mental status change TECHNIQUE: Multiaxial CT images of the head were performed without the use of intravenous contrast. A dose lowering technique was utilized adhering to the principles of ALARA. Comparison: None. Findings: The paranasal sinuses and mastoid air cells are clear. The calvarium and skull base are intact. The ventricles and sulci are within normal limits. There is no mass, hematoma, midline shift, or acute infarct. Impression: No acute intracranial abnormality. The above report was generated using voice recognition software. It may contain grammatical, syntax or spelling errors. Assessment & Plan Clinical picture most consistent with diagnosis of viral meningitis, with enteral viruses and West Nile being most likely candidates, herpes simplex less likely. Typically, patients with Lyme meningitis will have positive serology, but cannot totally rule out this possibility. Appropriate CSF studies have been ordered, but will take some time since they are sent to reference lab. Hopefully can discontinue antibiotics in the next 24 hours or so as long as patient continues to improve and cultures remain negative. Will follow.
[2017-05-08] MEDS ORDERED: AMPICILLIN IV 2,000 MG in SODIUM CHLOR 0.9% AD-VAN 100ML 100 ML IV SCH (12:00)
--- NOTE | 2017-05-08 18:34 | Progress Note ---
Internal Med Progress Note Date of Service: May 08, 2017. Provider Documentation: SUBJECTIVE: resting comfortably denies any headache or neck pain today no nausea afebrile requesting to advance his diet OBJECTIVE: Vital Signs-as noted below Exam: General-alert and awake. Not in distress ENT-normal hearing Neck-no neck masses Lungs-cta b/l no wheezing or crackles Heart-s1 and s2 heard regular rhythm no murmurs Abdomen-soft bowel sounds present non tender no distension Extremities-no edema no erythema Neuro-alert and oriented moves extremities Lab data as noted below. ASSESSMENT & PLAN: VIRAL MENINGITIS patient presented with nausea, vomiting, and headache x 3 days; spinal tap in the ED suggestive of viral meningitis no signs of sepsis, head CT negative serum Lyme negative On empiric anabiotics until cultures resulted - Vanco, Ceftriaxone, and Ampicillin On empiric IV Acyclovir Appreciate ID and neuro consults to d/c abx in am if cultures remain negative HX FACTOR V LEIDEN DVT PROPHYLAXIS SQ Lovenox DISPOSITION possible d/c in am Vital Signs: Date Time Temp Pulse Resp B/P (MAP) Pulse Ox O2 Delivery O2 Flow Rate FiO2 05/08/17 16:00 Room Air 05/08/17 15:15 36.9 70 20 142/73 (96) 94 Room Air 05/08/17 13:16 36.5 86 20 143/71 (95) 96 05/08/17 11:30 Room Air 05/08/17 07:45 36.8 68 20 136/74 (94) 97 05/08/17 07:30 Room Air 05/08/17 04:09 Room Air 05/08/17 04:00 37.0 69 18 122/68 (86) 96 Room Air 05/08/17 00:15 Room Air 05/08/17 00:04 36.8 65 18 125/61 (82) 94 Room Air 05/07/17 20:30 Room Air 05/07/17 19:28 37.0 77 18 124/67 (86) 90 Room Air Lab Results: Results Past 24 Hours Test 05/08/17 05:28 Range/Units White Blood Count 13.00 4.8-10.8 K/uL Red Blood Count 4.44 4.7-6.1 M/uL Hemoglobin 14.3 14.0-18.0 g/dL Hematocrit 40.7 42-52 % Mean Corpuscular Volume 91.7 80-100 fL Mean Corpuscular Hemoglobin 32.2 25-34 pg Mean Corpuscular Hemoglobin Concent 35.1 32-36 g/dl RDW Standard Deviation 42.0 36.4-46.3 fL RDW Coefficient of Variation 12.4 11.5-14.5 % Platelet Count 194 130-400 K/uL Mean Platelet Volume 10.0 7.4-10.4 fL Sodium Level 140 136-145 mmol/L Potassium Level 3.8 3.5-5.1 mmol/L Chloride Level 109 98-107 mmol/L Carbon Dioxide Level 25 21-32 mmol/L Anion Gap 6.0 3-11 mmol/L Blood Urea Nitrogen 15 7-18 mg/dl Creatinine 0.92 0.60-1.40 mg/dl Est Creatinine Clear Calc Drug Dose 96.9 ml/min Estimated GFR () 103.7 Estimated GFR (Non- 89.5 BUN/Creatinine Ratio 16.1 10-20 Random Glucose 109 70-99 mg/dl Calcium Level 8.4 8.5-10.1 mg/dl Hepatitis C Antibody Screen NEG NEG
[2017-05-08] MEDS: ACETAMINOPHEN 325 MG TAB PO PRN (19:16)
[2017-05-08] MEDS: ENOXAPARIN 40 MG/0.4 ML SYR SC SCH (19:16)
[2017-05-08] MEDS ORDERED: VANCOMYCIN TROUGH SCH (21:30)
--- NOTE | 2017-05-08 23:46 | NEUROLOGY CONSULTATION ---
DATE OF CONSULTATION: 05/08/2017 I am seeing Mr. Cadena in followup of, what appears to be, an aseptic meningitis, likely viral. Dr. Newby has seen him today and commented on the CSF and findings. The patient has a mild headache, which is not postural. He has not noticed any graying of the vision, double vision, unilateral weakness or numbness. His white count today is 13, although he is on some Decadron. Chemistry profile notable for random glucose of 109. CSF, West Nile, Lyme pending. Serum enterovirus and HSV 1 and 2 Pending. VITAL SIGNS: T-max currently 36.9, 70, 20, 142/73, 94%. GENERAL: The patient is awake and alert. There is normal speech and affect. NECK: Supple. NEUROLOGIC: Pupils are equal. I did not appreciate any papilledema. There are normal leung and motility, facial symmetry, symmetric upper and lower extremity strength. Normal [id number] and [id number]. IMPRESSION: Presumed viral meningitis. Defer to Dr. Newby regarding an ongoing empiric treatment. I indicated to the patient the headache, which seems improved, will continue to gradually improve, but may persist for some time. We will continue to follow with you. If the patient is discharged tomorrow morning before I have an opportunity to see him, I do not think he needs to see me in followup, unless the headache persists for an unexpected amount of time. CHRISTINE
[2017-05-09] VITALS: BP 129/65; PULSE 73; TEMP 38.7; O2SAT 93
[2017-05-09] MEDS: ACETAMINOPHEN 325 MG TAB PO PRN (00:56)
[2017-05-09] MEDS: ACYCLOVIR SOD INJ 750 MG in DEXTROSE 5% 250ML 250 ML IV SCH ×2 (00:56→07:51)
[2017-05-09] MEDS: CEFTRIAXONE SOD INJ 2,000 MG in DEXTROSE 5% 50ML 50 ML IV SCH (02:48)
[2017-05-09 04:00] VITALS: BP 126/63; PULSE 66; TEMP 37.5; O2SAT 95
[2017-05-09 07:12] LABS: CREATININE 1.1 mg/dl (0.60-1.40)
[2017-05-09 07:39] VITALS: BP 137/69; PULSE 68; TEMP 38; O2SAT 92
[2017-05-09 08:15] VITALS: O2SAT 97
--- NOTE | 2017-05-09 11:29 | Discharge Instructions ---
Discharge Instructions Date of Service May 09, 2017. Admission Reason for Admission: Meningitis Discharge Discharge Diagnosis / Problem: viral meningitis Discharge Goals Goal(s): Decrease discomfort, Improve function Activity Recommendations Activity Limitations: resume your previous activity . Instructions / Follow-Up Instructions / Follow-Up FOLLOWUP WITH FAMILY DOCTOR ON April AT 11AM Current Hospital Diet Patient's current hospital diet: Regular Diet Discharge Diet Recommended Diet: Regular Diet Pending Studies Studies pending at discharge: no Medical Emergencies . Who to Call and When: Medical Emergencies: If at any time you feel your situation is an emergency, please call 911 immediately. . Non-Emergent Contact Non-Emergency issues call your: Primary Care Provider . . "Provider Documentation" section prepared by Conrado Melendez. . VTE Core Measure Inpt VTE Proph given/why not?: Enoxaparin (Lovenox)SQ
[2017-05-09 12:19] VITALS: BP 137/69; PULSE 68; TEMP 38; O2SAT 97
--- NOTE | 2017-05-09 18:47 | Progress Note ---
Internal Med Progress Note Date of Service: May 09, 2017. Provider Documentation: SUBJECTIVE: resting comfortably had temp spike last night has some headache while coughing no neck pain' no other complaints wants to be discharged OBJECTIVE: Vital Signs-as noted below Exam: General-alert and awake. Not in distress ENT-normal hearing Neck-no neck masses Lungs-cta b/l no wheezing or crackles Heart-s1 and s2 heard regular rhythm no murmurs Abdomen-soft bowel sounds present non tender no distension Extremities-no edema no erythema Neuro-alert and oriented moves extremities Lab data as noted below. ASSESSMENT & PLAN: VIRAL MENINGITIS patient presented with nausea, vomiting, and headache x 3 days; spinal tap in the ED suggestive of viral meningitis no signs of sepsis, head CT negative serum Lyme negative On empiric anabiotics until cultures resulted - Vanco, Ceftriaxone, and Ampicillin On empiric IV Acyclovir Appreciate ID and neuro consults Abx d/phong as cx negative so far had temp psike last night -mostly from viral infection ID ok for discharge f/u with pcp HX FACTOR V LEIDEN Discharged home Vital Signs: Date Time Temp Pulse Resp B/P (MAP) Pulse Ox O2 Delivery O2 Flow Rate FiO2 05/09/17 12:19 38.0 68 18 97 Room Air 05/09/17 08:15 97 Room Air 05/09/17 07:39 38.0 68 18 137/69 (91) 92 Room Air 05/09/17 04:00 95 Room Air 05/09/17 04:00 37.5 66 16 126/63 (84) 95 Room Air 05/09/17 00:00 38.7 73 18 129/65 (86) 93 Room Air 05/08/17 23:59 93 Room Air 05/08/17 20:00 Room Air 05/08/17 19:01 37.2 84 24 113/64 (80) 92 Nasal Cannula 2.0 05/08/17 18:59 38.7 86 14 143/72 (95) 95 Room Air Lab Results: Results Past 24 Hours Test 05/09/17 05:56 Range/Units Creatinine 1.10 0.60-1.40 mg/dl Est Creatinine Clear Calc Drug Dose 81.7 ml/min Estimated GFR () 83.5 Estimated GFR (Non- 72.1
--- NOTE | 2017-05-09 18:54 | Discharge Summary ---
Discharge Summary Date of Service May 09, 2017. Discharge Summary Admission Date: May 07, 2017 at 15:19 Discharge Date: May 09, 2017 Discharge Disposition: Home Principal Diagnosis: VIRAL MENINGITIS Secondary Diagnoses/Problems: (1) BPH (benign prostatic hyperplasia) Status: Chronic (2) DVT (deep venous thrombosis) Status: Resolved (3) DVT (deep venous thrombosis) Status: Chronic (4) Factor V Leiden Status: Chronic (5) Gout Status: Chronic (6) Pulmonary embolism Status: Chronic Procedures: CT HEAD: No acute intracranial abnormality. S/P LP Consultations: NEUROLOGY ID Medication Reconciliation Continued Medications: Allopurinol (Zyloprim) 100 Mg Tab 1 TAB PO DAILY PRN for gout for 30 Days, #30 TAB 5 Refills Indomethacin (Indocin) 25 Mg Cap 1 CAP PO TID PRN for Pain Admission Information HPI (per Admitting provider): 61 year old male who presents to the ER with nausea, vomiting, and headache. Patient reports his symptoms began 3 days ago. He reports several episodes of vomiting over the past 3 days. He denies hematemesis or coffee ground emesis. No abdominal pain or diarrhea. He reports a severe frontal / temporal headache. He reports mild neck pain and stiffness. He reports minimal movement of his head would worsen the headache. He denies photosensitivity. No blurry or double vision. He feels as though he has been running fevers but did not take his temperature. He denies recent travel or other sick contacts. He denies lightheadedness, dizziness, diaphoresis, or syncopal events. No chest pain or shortness of breath. He denies any urinary symptoms. In the ER, patient is hemodynamically stable. Spinal tap was preformed that showed WBC 260, glucose 48 , and total protein 118. Patient was treated with IVF, IV Zofran, IV Compazine, IV Benadryl, IV Toradol, IV Vanco, IV Rocephin, IV Ampicillin, and IV Decadron. Physical Exam (per Admitting): General Appearance: no apparent distress Head: normocephalic Eyes: normal inspection, PERRL, EOMI ENT: hearing grossly normal Neck: supple, no JVD Respiratory/Chest: lungs clear, normal breath sounds, no respiratory distress Cardiovascular: regular rate, rhythm, no edema, normal peripheral pulses Abdomen/GI: normal bowel sounds, non tender, soft Extremities/Musculoskelatal: normal inspection, no calf tenderness Neurologic/Psych: no motor/sensory deficits, alert, normal mood/affect, oriented x 3 Skin: normal color, warm/dry Hospital Course VIRAL MENINGITIS patient presented with nausea, vomiting, and headache x 3 days; spinal tap in the ED suggestive of viral meningitis no signs of sepsis, head CT negative serum Lyme negative On empiric anabiotics until cultures resulted - Vanco, Ceftriaxone, and Ampicillin On empiric IV Acyclovir Appreciate ID and neuro consults Abx d/phong as cx negative so far had temp psike last night -mostly from viral infection ID ok for discharge f/u with pcp HX FACTOR V LEIDEN Discharged home Total time spent on discharge = 35MINUTES This includes examination of the patient, discharge planning, medication reconciliation, and communication with other providers. Discharge Instructions Discharge Instructions Date of Service May 09, 2017. Admission Reason for Admission: Meningitis Discharge Discharge Diagnosis / Problem: viral meningitis Discharge Goals Goal(s): Decrease discomfort, Improve function Activity Recommendations Activity Limitations: resume your previous activity . Instructions / Follow-Up Instructions / Follow-Up FOLLOWUP WITH FAMILY DOCTOR ON April AT 11AM Current Hospital Diet Patient's current hospital diet: Regular Diet Discharge Diet Recommended Diet: Regular Diet Pending Studies Studies pending at discharge: no Medical Emergencies . Who to Call and When: Medical Emergencies: If at any time you feel your situation is an emergency, please call 911 immediately. . Non-Emergent Contact Non-Emergency issues call your: Primary Care Provider . . "Provider Documentation" section prepared by Conrado Melendez. . VTE Core Measure Inpt VTE Proph given/why not?: Enoxaparin (Lovenox)SQ
[2017-05-13 00:41] LABS: CULTURE SOURCE CSF; ENTEROVIRUS PCR Not Detected (Not Detected); HSV TYPE 1 DNA Not Detected (Not Detected); HSV TYPE 1&2 DNA SOURCE CSF; HSV TYPE 2 DNA Not Detected (Not Detected); LYME DNA PCR CSF OR SYNOVIAL Not detected (Not Detected); LYME DNA SOURCE CSF
== END 2017-05-09 13:10 | disposition home or self-care (01) | DRG 75 ==
LOC: C.EDB 11:06 → C.2E 15:19 → EDBEDREQ 15:23 → ENRESERV 15:37
PROVIDERS: ADMIT Internal Medicine; ATTEND Internal Medicine
PROC: 009U3ZX Drainage of Spinal Canal, Percutaneous Approach, Diagnostic (ICD-10-PCS; principal; 2017-05-07)
DX: A87.9 Viral meningitis, unspecified (principal); D68.51 Activated protein C resistance; Z51.81 Encounter for therapeutic drug level monitoring; Z86.718 Personal history of other venous thrombosis and embolism; Z86.711 Personal history of pulmonary embolism; Z83.3 Family history of diabetes mellitus; Z82.49 Family history of ischemic heart disease and other diseases of the circulatory system